=== PATIENT | male | born 1950 | race Caucasian/White ===

== ENCOUNTER 2016-06-20 06:12 | Emergency (ER) | payer OTHER ==
[~2016-06-20] VITALS: Ht 160 cm; Wt 64.0 kg
[2016-06-20 06:17] VITALS: Ht 160 cm; Wt 64.0 kg
[2016-06-20] MEDS ORDERED: KETOROLAC TROMETHAMINE 30 MG/ML VIAL IV STA (06:29)
[2016-06-20] MEDS ORDERED: MoRPHine SULFATE 10 MG/ML CARP/VIAL IV PRN (06:30)
[2016-06-20] MEDS ORDERED: ONDANSETRON INJ 2 MG/ML 2 ML VIAL IV PRN (06:30)
[2016-06-20 06:58] LABS: BASO % 0.9 %; BASO ABS # 0.07 K/uL (0-0.2); COMPLETE YES; EOS % 7.4 %; HEMATOCRIT 51.6 % (42-52); IG% 0.4 %; LYMPH % 45.5 %; LYMPH ABS # 3.65 K/uL (1.2-3.4); MEAN CELL VOLUME 90.8 fL (80-100); MEAN CORPUSCULAR HEMOGLOBIN 31.9 pg (25-34); MEAN CORPUSCULAR HGB CONC 35.1 g/dl (32-36); MEAN PLATELET VOLUME 10.6 fL (7.4-10.4); MONO % 9.2 %; NEUT % 36.6 %; PLATELET COUNT 215 K/uL (130-400); RED BLOOD COUNT 5.68 M/uL (4.7-6.1); WHITE BLOOD COUNT 8.02 K/uL (4.8-10.8)
--- NOTE | 2016-06-20 07:15 | EMERGENCY ROOM VISIT NOTE ---
History Report prepared by Mt: Daniela Hooper Under the Supervision of: Dr. Joao Zarate M.D. First contact with patient: 06:28 Chief Complaint: KIDNEY STONE Stated Complaint: KIDNEY STONE History of Present Illness The patient is a 65 year old male who presents to the Emergency Room with complaints of persistent left flank pain that began prior to arrival. He currently rates his discomfort as a 10/10 in severity. The patient notes a history of kidney stones this past summer, and states that his pain today is similar to the pain that he experienced with his previous kidney stones. He associates dysuria, urinary hesitancy, nausea, and diarrhea with his symptoms today. The patient states that he has a pacemaker and defibrillator. Source of History: patient Onset: prior to arrival Position: other (left flank) Symptom Intensity: 10/10 Timing: other (persistent) Associated Symptoms: + diarrhea, + nausea, + urinary symptoms (dysuria, urinary hesitancy) Review of Systems All systems have been listed, reviewed, and are negative other than those previously mentioned. Please see Additional Medical History Sheet. Past Medical & Surgical Medical Problems: (1) Pacemaker (2) Presence of cardiac defibrillator Family History Cancer Heart disease Hypertension Social History Smoking Status: Current Every Day Smoker Alcohol Use: occasionally Marital Status: single Occupation Status: retired Current/Historical Medications Scheduled Atorvastatin (Lipitor), 1 TAB PO DAILY Hydrocortisone (Topical) (Hydrocortisone), 1 APPLN TOP BID Metoprolol Succ (Toprol Xl) (Toprol-Xl), 25 MG PO DAILY Tamsulosin Hcl (Flomax), 0.4 MG PO DAILY Scheduled PRN Oxycodone/Acetaminophen 5MG/325MG (Percocet 5MG/325MG), 1-2 TABLETS PO Q4 PRN for Pain Miscellaneous Medications Clopidogrel Bisulfate (Clopidogrel) Lisinopril (Zestril), 10 MG PO Allergies Coded Allergies: No Known Allergies (Unverified , 06/20/16) Physical Exam Vital Signs Date Time Temp Pulse Resp B/P Pulse Ox O2 Delivery O2 Flow Rate FiO2 06/20/16 10:35 63 16 115/64 95 Room Air 06/20/16 07:42 54 18 113/72 06/20/16 06:17 52 18 129/74 97 Room Air Physical Exam GENERAL: Patient awake, alert, moderate to severe distress. SKIN: No erythema, pallor, cyanosis or rash HEENT: Normal head, pupils equal, reactive to light and accommodation. Neck: Without adenopathy, no neck vein distention. LUNGS: Clear to auscultation. No wheezes, no rales, no rhonchi. HEART: No murmurs. No gallops. No rubs ABDOMEN: No masses, no rebound, no hepatomegaly or splenomegaly. EXTREMITIES: No signs of trauma or infection. NEUROLOGIC: Cranial nerves II-XII within normal limits. No gross motor sensory function deficits. Medical Decision & Procedures ER Provider Diagnostic Interpretation: X ray results are stated below per my interpretation and the radiologist's interpretation. KUB CLINICAL HISTORY: Left flank pain. FINDINGS: An AP supine abdominal radiograph is obtained. No prior studies are available for comparison at the time of dictation. There is a nonobstructed abdominal bowel gas pattern. A 5 mm calcification is noted in the left hemipelvis. A 5 mm indeterminant calcification is also seen projecting over the left sacral ala. There is a 3 mm nonobstructing calculus projecting over the left kidney. No calcifications are seen projecting over the right kidney or along the course of the right ureter. The bony structures appear intact. IMPRESSION: 1. There are two indeterminant 5 mm calcifications projecting over the left pelvis. Although these could represent a phlebolith and bone island, an obstructing ureteral calculus is not excluded given the history of left flank pain and no prior studies for comparison. Consider correlation with renal ultrasound to assess for left-sided hydronephrosis. 2. An additional nonobstructing calculus is seen projecting over the left kidney. 3. No calcifications are seen projecting over the right kidney. Electronically signed by: Sin Antoine M.D. 06/20/2016 7:50 AM Laboratory Results 06/20/16 06:45 Red Blood Count 5.68, Mean Corpuscular Volume 90.8, Mean Corpuscular Hemoglobin 31.9, Mean Corpuscular Hemoglobin Concent 35.1, Mean Platelet Volume 10.6, Neutrophils (%) (Auto) 36.6, Lymphocytes (%) (Auto) 45.5, Monocytes (%) (Auto) 9.2, Eosinophils (%) (Auto) 7.4, Basophils (%) (Auto) 0.9, Neutrophils # (Auto) 2.94, Lymphocytes # (Auto) 3.65, Monocytes # (Auto) 0.74, Eosinophils # (Auto) 0.59, Basophils # (Auto) 0.07 06/20/16 06:45 Test 06/20/16 06:45 06/20/16 07:55 White Blood Count 8.02 K/uL (4.8-10.8) Red Blood Count 5.68 M/uL (4.7-6.1) Hemoglobin 18.1 g/dL (14.0-18.0) Hematocrit 51.6 % (42-52) Mean Corpuscular Volume 90.8 fL (80-100) Mean Corpuscular Hemoglobin 31.9 pg (25-34) Mean Corpuscular Hemoglobin Concent 35.1 g/dl (32-36) Platelet Count 215 K/uL (130-400) Mean Platelet Volume 10.6 fL (7.4-10.4) Neutrophils (%) (Auto) 36.6 % Lymphocytes (%) (Auto) 45.5 % Monocytes (%) (Auto) 9.2 % Eosinophils (%) (Auto) 7.4 % Basophils (%) (Auto) 0.9 % Neutrophils # (Auto) 2.94 K/uL (1.4-6.5) Lymphocytes # (Auto) 3.65 K/uL (1.2-3.4) Monocytes # (Auto) 0.74 K/uL (0.11-0.59) Eosinophils # (Auto) 0.59 K/uL (0-0.5) Basophils # (Auto) 0.07 K/uL (0-0.2) RDW Standard Deviation 47.6 fL (36.4-46.3) RDW Coefficient of Variation 14.2 % (11.5-14.5) Immature Granulocyte % (Auto) 0.4 % Immature Granulocyte # (Auto) 0.03 K/uL (0.00-0.02) Anion Gap 10.0 mmol/L (3-11) Est Creatinine Clear Calc Drug Dose 55.3 ml/min Estimated GFR () 82.4 Estimated GFR (Non- 71.1 BUN/Creatinine Ratio 19.4 (10-20) Calcium Level 8.7 mg/dl (8.5-10.1) Urine Color DK YELLOW Urine Appearance CLEAR (CLEAR) Urine pH 5.0 (4.5-7.5) Urine Specific [place] 1.027 (1.000-1.030) Urine Protein NEG (NEG) Urine Glucose (UA) NEG (NEG) Urine Ketones TRACE (NEG) Urine Occult Blood 3+ (NEG) Urine Nitrite NEG (NEG) Urine Bilirubin NEG (NEG) Urine Urobilinogen NEG (NEG) Urine Leukocyte Esterase NEG (NEG) Urine WBC (Auto) 1-5 /hpf (0-5) Urine RBC (Auto) >30 /hpf (0-4) Urine Hyaline Casts (Auto) 5-10 /lpf (0-5) Urine Epithelial Cells (Auto) 0-5 /lpf (0-5) Urine Bacteria (Auto) NEG (NEG) Laboratory results as stated above per my review. Medications Administered Medications (Trade) Dose Ordered Sig/[place] Route Start Time Stop Time Status Last Admin Dose Admin Ketorolac Tromethamine (Toradol Inj) 30 mg NOW STAT IV 06/20/16 06:29 06/20/16 06:33 DC 06/20/16 06:37 30 MG ED Course 0628: Past medical records reviewed. The patient was evaluated in room B10. A complete history and physical examination was performed. 0629: Toradol Inj 30 mg IV 0630: Morphine Sulfate 8 mg IV, Zofran Inj 4 mg IV 0704: I reevaluated the patient at this time and he is feeling better. 0936: I reevaluated the patient and he is feeling much better. I discussed all the exam findings with him and I discussed the treatment plan. He verbalized complete understanding and agreement. He is ready to go home. Medical Decision Nurses notes reviewed. Medical history sheet reviewed. Differential diagnosis includes but is not limited to: kidney stone, pyelonephritis, musculoskeletal pain, UTI. Multiple labs and imaging were obtained. Please see above. The patient was given IV pain medication. The patient felt significantly better. KUB did not clearly identify the stone but the patient has had multiple CTs in the past and I do not believe he requires another one at this time. The patient will continue to push fluids. He is to strain his urine. The patient was also started on Flomax. [place] Drug Monitoring Program Search Results: patient reviewed within database, no issues identified Impression Primary Impression: Renal colic on left side Scribe Attestation The scribe's documentation has been prepared under my direction and personally reviewed by me in its entirety. I confirm that the note above accurately reflects all work, treatment, procedures, and medical decision making performed by me. Departure Information Dispostion Home / Self-Care Prescriptions Oxycodone/Acetaminophen 5MG/325MG (PERCOCET 5MG/325MG) Tab 1-2 TABLETS PO Q4 Y for Pain, #20 TAB PAIN Prov: Joao Zarate M.D. 06/20/16 Tamsulosin Hcl (FLOMAX) 0.4 Mg Cap 0.4 MG PO DAILY, #10 CAP Prov: Joao Zarate M.D. 06/20/16 Referrals No Doctor, Assigned (PCP) Forms HOME CARE DOCUMENTATION FORM, IMPORTANT VISIT INFORMATION Patient Instructions ED Stone Renal W Colic, My [facility] Additional Instructions Drink extra fluids. 1 Flomax every day until stone passes. Strain your urine. 1-2 Percocet every 4 hours as needed for moderate to severe pain. Do not drive or operate machinery while taking Percocet. Return here if pain is not controlled with Percocet. Follow-up with your family physician or urologist.
[2016-06-20 07:18] LABS: BUN/CREATININE RATIO 19.4 (10-20); CALCIUM 8.7 mg/dl (8.5-10.1); CREATININE 1.1 mg/dl (0.60-1.40); POTASSIUM 3.7 mmol/L (3.5-5.1)
--- NOTE | 2016-06-20 07:51 | DIAGNOSTIC IMAGING REPORT ---
KUB CLINICAL HISTORY: Left flank pain. FINDINGS: An AP supine abdominal radiograph is obtained. No prior studies are available for comparison at the time of dictation. There is a nonobstructed abdominal bowel gas pattern. A 5 mm calcification is noted in the left hemipelvis. A 5 mm indeterminant calcification is also seen projecting over the left sacral ala. There is a 3 mm nonobstructing calculus projecting over the left kidney. No calcifications are seen projecting over the right kidney or along the course of the right ureter. The bony structures appear intact. IMPRESSION: 1. There are two indeterminant 5 mm calcifications projecting over the left pelvis. Although these could represent a phlebolith and bone island, an obstructing ureteral calculus is not excluded given the history of left flank pain and no prior studies for comparison. Consider correlation with renal ultrasound to assess for left-sided hydronephrosis. 2. An additional nonobstructing calculus is seen projecting over the left kidney. 3. No calcifications are seen projecting over the right kidney. Electronically signed by: Sin Antoine M.D. 06/20/2016 7:50 AM Dictated Date/Time: 06/20/2016 7:45 AM
[2016-06-20 08:09] LABS: URINE APPEARANCE CLEAR (CLEAR); URINE BILIRUBIN NEG (NEG); URINE COLOR DK YELLOW; URINE EPITHELIAL CELL AUTO 0-5 /lpf (0-5); URINE NITRITE NEG (NEG); URINE SPECIFIC GRAVITY 1.027 (1.000-1.030); UROBILINOGEN NEG (NEG); ZZUR CULT IF INDIC CLEAN CATCH NO
[2016-06-20 08:12] LABS: MANUAL MICROSCOPIC REQUIRED? NO; REVIEW REQ? NO
[2016-06-20] MEDS ORDERED: PLV75 (08:45)
[2016-06-20] MEDS ORDERED: ATOR10TA88 PO (08:45)
[2016-06-20] MEDS ORDERED: METO25TA3 PO (08:45)
[2016-06-20] MEDS ORDERED: LISI-461 PO (08:45)
[2016-06-20] MEDS ORDERED: HYDR2.5L TOP (08:45)
[2016-06-20] MEDS ORDERED: TAMS0.4C38 PO (10:07)
[2016-06-20] MEDS ORDERED: OXYC-57 PO (10:07)
[2016-06-20 10:35] VITALS: BP 115/64; PULSE 63; O2SAT 95
== END 2016-06-20 10:47 | disposition home or self-care (01) ==
LOC: C.EDB 06:14
DX: N20.0 Calculus of kidney (principal); F17.200 Nicotine dependence, unspecified, uncomplicated; Z79.899 Other long term (current) drug therapy; Z95.0 Presence of cardiac pacemaker; Z45.02 Encounter for adjustment and management of automatic implantable cardiac defibrillator; Z80.9 Family history of malignant neoplasm, unspecified; Z82.49 Family history of ischemic heart disease and other diseases of the circulatory system

== ENCOUNTER → 2017-05-28 | Outpatient (CLI) | payer OTHER ==
[~2017-05-28] MED LIST: ATOR10TA82 PO; HYDR2.5L TOP; LISI-461 PO; METO25TA3 PO; PLV75
--- NOTE | 2017-05-28 14:40 | DIAGNOSTIC IMAGING REPORT ---
SINUSES MIN 3 VIEWS ROUTINE CLINICAL HISTORY: J30.9 Allergic [id number] COMPARISON STUDY: None. FINDINGS: Near complete opacification of the right frontal sinus and left maxillary sinus. The remaining paranasal sinuses and mastoid air cells are clear. The nasal septum is essentially midline. IMPRESSION: Near complete opacification of the right frontal sinus and left maxillary sinus consistent with a sinusitis. Electronically signed by: Odilon Soriano M.D. 05/28/2017 2:38 PM Dictated Date/Time: 05/28/2017 2:37 PM
== END | disposition home or self-care (01) ==
LOC: C.RAD1850 14:21
PROVIDERS: ATTEND Internal Medicine Pulmonary Disease
DX: J30.9 Allergic rhinitis, unspecified (principal)

== ENCOUNTER → 2017-06-07 | Outpatient (CLI) | payer OTHER ==
[~2017-06-07] MED LIST changes: +OPTIRAY 320 IV PRN
--- NOTE | 2017-06-07 14:04 | DIAGNOSTIC IMAGING REPORT ---
CT SCAN OF THE CHEST WITH IV CONTRAST CLINICAL HISTORY: COPD exacerbation. COMPARISON STUDY: Chest radiographs dated 01/06/2017. TECHNIQUE: Following the IV administration of 85 cc of Optiray 320, CT scan of the thorax was performed from the thoracic inlet to the upper abdomen. Images are reviewed in the axial, sagittal, and coronal planes. IV contrast was administered without complication. A dose lowering technique was utilized adhering to the principles of ALARA. CT DOSE: 271.26 mGycm FINDINGS: Thyroid: Imaged portions of the thyroid gland are normal in size and attenuation. Thoracic aorta: There is mild atherosclerotic calcification of the thoracic aorta, which is normal in caliber and demonstrates standard 3-vessel arch anatomy. No dissection is seen. Pulmonary vasculature: The pulmonary trunk is normal in caliber. There are no filling defects identified in the central pulmonary vessels to indicate pulmonary embolus. Note that this examination was not protocoled for evaluation of the pulmonary arteries. Heart: A single lead cardiac AICD is present in the left chest wall. The heart is top normal in size and without pericardial effusion. A stent is suggested in the LAD. Lungs and pleural spaces: Emphysematous change is noted. The trachea and central airways are clear. Mild diffuse peribronchial thickening is identified. No lobar consolidation or pleural effusion is seen. Scarring versus linear atelectasis is seen at the left lung base. Mediastinum: There is no mediastinal lymphadenopathy. Moni: Clear. Axillae: There is no axillary lymphadenopathy. Upper abdomen: Partially visualized upper abdominal viscera is within normal limits. Skeletal structures: No lytic or blastic bony lesions are seen. IMPRESSION: 1. Emphysema. 2. There is no airspace consolidation or pleural effusion. 3. Mild diffuse peribronchial thickening suggests reactive airway disease. Clinical correlation will be required. Electronically signed by: Sin Antoine M.D. 06/07/2017 2:03 PM Dictated Date/Time: 06/07/2017 1:59 PM
== END | disposition home or self-care (01) ==
LOC: C.CTS 13:42
PROVIDERS: ATTEND Internal Medicine Pulmonary Disease
DX: J44.1 Chronic obstructive pulmonary disease with (acute) exacerbation (principal)

== ENCOUNTER → 2017-06-21 | Outpatient (CLI) | payer OTHER ==
[~2017-06-21] MED LIST changes: -OPTIRAY 320 IV PRN
--- NOTE | 2017-06-21 09:30 | DIAGNOSTIC IMAGING REPORT ---
SINUS CT CT DOSE: 602.64 mGy.cm HISTORY: ALLERGIC RHINITIS, CHRONIC SINUSITIS TECHNIQUE: Multiaxial CT images of the paranasal sinuses were performed and reformatted in the coronal plane without the use of contrast. A dose lowering technique was utilized adhering to the principles of ALARA. COMPARISON: Sinus radiograph 05/28/2017. FINDINGS: Mild mucosal thickening within the floor the left frontal sinus. The right frontal sinus is clear. There is mild mucosal thickening within the ethmoid air cells and sphenoid sinuses. Mild mucosal thickening within the floor of the right maxillary sinus. There is complete opacification the left maxillary sinus which demonstrates mild thickening and sclerosis of the surrounding bone. This suggests a chronic opacification. The lamina papyracea are intact. The right mastoid air cells are clear. A few partially opacified left inferior mastoid air cells. Tiny focal perforation of the medial left orbital floor. No soft tissue extension. Left nasal septal deviation with a left-sided nasal spur. The left middle turbinate may have been resected or is hypoplastic. The orbits and visualized brain parenchyma are unremarkable. There is a 1 cm defect within the floor of the left maxillary sinus. There is an associated periapical lucency at ADA 15. The right ostomy units is patent. The left ostiomeatal unit is expanded and opacified. There is partial erosion of the left uncinate process. Slightly hyperdense material within the opacified left maxillary sinus. This favors inspissated secretions. IMPRESSION: 1. Complete opacification of the left maxillary sinus with expansion of the left ostiomeatal unit and partial erosion of the left uncinate process. There is also increased density within the left maxillary sinus suggestive of inspissated secretions. 2. Periapical lucency surrounding ADA 15 with associated 1 cm defect at the floor of the left maxillary sinus resulting in communication of the left maxillary sinus with the periapical lucency. 3. Left nasal septal deviation. Electronically signed by: Odilon Soriano M.D. 06/21/2017 9:28 AM Dictated Date/Time: 06/21/2017 9:19 AM
== END | disposition home or self-care (01) ==
LOC: C.CTS 09:09
PROVIDERS: ATTEND Internal Medicine Pulmonary Disease
DX: J32.9 Chronic sinusitis, unspecified (principal); J30.9 Allergic rhinitis, unspecified; J34.2 Deviated nasal septum

== ENCOUNTER → 2017-07-08 | Outpatient (CLI) | payer OTHER ==
--- NOTE | 2017-07-08 07:45 | DIAGNOSTIC IMAGING REPORT ---
CT OF THE SINUSES WITHOUT CONTRAST FUSION PROTOCOL CLINICAL HISTORY: Chronic sinusitis. Near pansinusitis on previous sinus CT related to a dental abscess. COMPARISON STUDY: Sinus CT June 21, 2017. TECHNIQUE: Axial images of the sinuses were obtained without IV contrast few according to Fusion protocol. Coronal reformats were viewed. FINDINGS: Visualized portions of the intracranial contents are unremarkable this unenhanced exam. A small amount of fluid within left mastoid air cells is similar to prior exam. There is no fluid within the middle ears. Ossicles are intact. Orbits are unremarkable. Note is again made of a periapical lucency associated with the left second maxillary molar. There is a periapical lucency associated with the right third maxillary molar. Left maxillary sinus aeration has significantly improved since exam of June 21, 2017. There is mild to moderate residual mucosal thickening. The left ostiomeatal complex is now patent. There is mild mucosal thickening of the remainder of the sinuses. No air-fluid levels are present. There is no bony destruction. No mass is identified within the nasal cavity or the sinuses on this unenhanced exam. Note is made of moderate leftward deviation of the nasal septum with spur formation. IMPRESSION: 1. Significant improvement in left maxillary sinus aeration since exam of June 21, 2017. Mild to moderate residual mucosal thickening. Patent left ostiomeatal complex. 2. Otherwise, mild mucosal thickening throughout the sinuses. No air-fluid levels. 3. Moderate leftward deviation of the nasal septum. 4. Redemonstration of periapical lucencies associated with the left second maxillary molar as well as the right third maxillary molar. Electronically signed by: Ketan Mcarthur M.D. 07/08/2017 7:44 AM Dictated Date/Time: 07/08/2017 7:35 AM
== END | disposition home or self-care (01) ==
LOC: C.CTS 07:08
DX: J32.9 Chronic sinusitis, unspecified (principal); J34.2 Deviated nasal septum

== ENCOUNTER 2020-08-07 21:05 | Observation (INO) ==
--- OUTSIDE RECORDS SUMMARY | 2020-08-07 21:09 | External Medical Summary | Continuity of Care Document ---
:1950 Author Name Kenny Her, Provider Address Unavailable Unavailable , Care Team Providers Name Role Phone Ze Torres [email or web address] [place] RICARDO MORROW Unavailable Unavailable Unavailable Unavailable Unavailable Assessments Assessed Problems:Pulmonary emphysemaCOPD exacerbationChronic left maxillary sinusitisIschemic cardiomyopathyCardiac defibrillator in situ Problems Sensory hearing loss, bilateral (389.11) (H90.3) Sinusitis (473.9) (J32.9) Deviated nasal septum (470) (J34.2) Hypertrophy of both inferior nasal turbinates (478.0) (J34.3 ) Allergic rhinitis (477.9) (J30.9) Chronic sinusitis (473.9) (J32.9) COPD exacerbation (491.21) (J44.1) Cardiac defibrillator in situ (V45.02) (Z95.810) Chronic left maxillary sinusitis (473.0) (J32.0) Ischemic cardiomyopathy (414.8) (I25.5) Pulmonary emphysema (492.8) (J43.9) Allergies and Adverse Reactions No Known Drug Allergies (Allergy) Medications Proventil HFA 108 (90 Base) MCG/ACT Inha lation Aerosol Solution; INHALE 2 PUFFS Every 4 hours PRN 6.7 GM Inhaler Refills: 0 Metoprolol Succinate ER 50 MG Oral Table t Extended Release 24 Hour; TAKE 1 TABLET DAILY. 100 Tablet Bottle Refills: 0 Lisinopril 10 MG Oral Tablet; TAKE 1 TABLET DAILY. 15 Tablet Bottle Refills: 0 Clopidogrel Bisulfate 75 MG Oral Tablet; TAKE 1 TABLET DAILY . 30 Tablet Bottle Refills: 0 Nitroglycerin 0.4 MG Sublingual Tablet Sublingual Refills: 0 Doxycycline Hyclate 100 MG Oral Capsule; TAKE 1 CAPSULE TWICE DAILY - RESCUE KIT Refills: 0 Guaifenesin-Codeine 10-100 MG/5ML SYRP; TAKE 5ML EVERY 4 HOURS NEEDED FOR COUGH Refills: 0 Ipratropium-Albuterol 0.5-2.5 (3) MG/3ML Inhalation Solution; USE NEBULIZER 4 TIMES DAILY 30 x 3 ML Plas Cont Refills: 0 Gabapentin 300 MG Oral Capsule; Take 1 capsule twice daily Refills: 0 Atorvastatin Calcium 80 MG Oral Tablet; TAKE 1 TABLET DAILY. Refills: 0 Fluticasone Propionate 50 MCG/ACT Nasal Suspension; USE 2 SPRAYS INTO EACH NOSTRIL DAILY 9.9 ML Bottle Refills: 0 Aspirin 81 MG Oral Tablet Chewable; CHEW AND SWALLOW 1 TABLE T DAILY. Refills: 0 Anoro Ellipta 62.5-25 MCG/INH Inhalation Aerosol Powder Breath Activated; INHALE 1 PUFFS Daily Arden Torres Start: 15-Jun-2017 Quantity: 1 60 Inhaler Pack Refills: 5 Procedures History of cardiac catheterization with stent placement Status: Completed History of pacemaker insertion Status: C ompleted Immunizations Immunizations not documented Social History - Smoking Status Smokes tobacco daily Interventions Follow-ups/ReferralsFollow-Up Visit in 4 Months; Done: 28 Jul 2017 Discussion/SummaryContinue current maintenance inhaler return in 4 months .Urged to quit smoking entirely and to see his dentist for too long. Approximately 45 Minutes was spent with the patient. Greater than 50% of time with patient was spent on counseling and coordinating care. Plan of Treatment Planned Observations Planned Goals not documented Results No Known Results Results not documented Encounters Appointment; Ze Torres M.D. 28-Jul-2017 11:30 Encounter Diagnosis: Problem not documented
--- OUTSIDE RECORDS SUMMARY | 2020-08-07 21:09 | External Medical Summary | Continuity of Care Document ---
:1950 Author Name Kenny Her, Provider Address Unavailable Unavailable , Care Team Providers Name Role Phone Ze Torres [email or web address] [place] RICARDO MORROW Unavailable Unavailable Unavailable Unavailable Unavailable Assessments Assessed Problems:Pulmonary emphysemaCOPD exacerbationChronic left maxillary sinusitisIschemic cardiomyopathyCardiac defibrillator in situ Problems Sinusitis (473.9) (J32.9) Pulmonary emphysema (492.8) (J43.9) Ischemic cardiomyopathy (414.8) (I25.5) Chronic left maxillary sinusitis (473.0) (J32.0) Cardiac defibrillator in situ (V45.02) (Z95.810) Chronic sinusitis (473.9) (J32.9) Allergic rhinitis (477.9) (J30.9) Hypertrophy of both inferior nasal turbinates (478.0) (J34.3 ) Deviated nasal septum (470) (J34.2) Sensory hearing loss, bilateral (389.11) (H90.3) COPD exacerbation (491.21) (J44.1) Allergies and Adverse Reactions No Known Drug Allergies (Allergy) Medications Proventil HFA 108 (90 Base) MCG/ACT Inha lation Aerosol Solution; INHALE 2 PUFFS Every 4 hours PRN 6.7 GM Inhaler Refills: 0 Metoprolol Succinate ER 50 MG Oral Table t Extended Release 24 Hour; TAKE 1 TABLET DAILY. 100 Tablet Bottle Refills: 0 Doxycycline Hyclate 100 MG Oral Capsule; TAKE 1 CAPSULE TWICE DAILY - RESCUE KIT Refills: 0 Aspirin 81 MG Oral Tablet Chewable; CHEW AND SWALLOW 1 TABLE T DAILY. Refills: 0 Fluticasone Propionate 50 MCG/ACT Nasal Suspension; USE 2 SPRAYS INTO EACH NOSTRIL DAILY 9.9 ML Bottle Refills: 0 Atorvastatin Calcium 80 MG Oral Tablet; TAKE 1 TABLET DAILY. Refills: 0 Ipratropium-Albuterol 0.5-2.5 (3) MG/3ML Inhalation Solution; USE NEBULIZER 4 TIMES DAILY 30 x 3 ML Plas Cont Refills: 0 Nitroglycerin 0.4 MG Sublingual Tablet Sublingual Refills: 0 Anoro Ellipta 62.5-25 MCG/INH Inhalation Aerosol Powder Breath Activated; INHALE 1 PUFFS Daily Arden Torres Start: 15-Jun-2017 Quantity: 1 60 Inhaler Pack Refills: 5 Gabapentin 300 MG Oral Capsule; Take 1 capsule twice daily Refills: 0 Guaifenesin-Codeine 10-100 MG/5ML SYRP; TAKE 5ML EVERY 4 HOURS NEEDED FOR COUGH Refills: 0 Clopidogrel Bisulfate 75 MG Oral Tablet; TAKE 1 TABLET DAILY . 30 Tablet Bottle Refills: 0 Lisinopril 10 MG Oral Tablet; TAKE 1 TABLET DAILY. 15 Tablet Bottle Refills: 0 Procedures History of cardiac catheterization with stent [...]
[2020-08-07] MEDS ORDERED: ONDANSETRON INJ 2 MG/ML 2 ML VIAL IV STA (21:18)
[2020-08-07] MEDS ORDERED: MoRPHine SULFATE 4 MG/ML 1 ML CARP\\VIAL IV STA (21:18)
[2020-08-07] MEDS ORDERED: NITROGLYCERIN SL 0.4 MG/TAB TAB SL STA (21:18)
[2020-08-07] MEDS ORDERED: ALUMINUM/MAGNESIUM SUSP 30 ML UDC PO STA (21:18)
[2020-08-07] MEDS ORDERED: ASPIRIN CHEW 324 MG PO STA (21:18)
--- NOTE | 2020-08-07 21:24 | Emergency Department Note ---
Impression & Plan Chest pain, Abnormal EKG, Polycythemia, Tobacco use ED Provider Note NAME: MANDO BECKER AGE: 69 SEX: M : 1950 ARRIVES VIA: Walk-In INFORMANT: Patient, ED PROVIDER(S): Ze Horton DO CHIEF COMPLAINT: Epigastric pain HPI: The patient is a 69-year-old male who presented to the emergency department for an evaluation of epigastric pain. The patient states that he awoke this morning with epigastric pain. He describes it under his rib cage and under his left rib cage mostly. He describes it as a constant sensation. He describes it as "gas". He initially thought it was from heartburn. He tried [id number] medication without relief. He denies having any shortness of breath. The patient denies having any swelling in the legs or weight gain. He does have a history of coronary artery disease and has had a cardiac stent in the past. He states that his symptoms were very similar. He denies having any nausea or vomiting at this time. His pain returned this evening and did not go away and this is why he came to the emergency department. He states he tried to belch which did not relieve the pain. He states the pain is moderate at this time. He states the pain is not worsened with palpation or exertion. ROS: See above HPI for pertinent positives & negatives. A total of 10 systems reviewed and were otherwise negative. PAST MEDICAL HISTORY: See Below PAST SURGICAL HISTORY: See Below FAMILY HISTORY: See Below SOCIAL HISTORY: See Below HOME MEDICATIONS: See Below ALLERGIES: See Below VITALS: See Below PHYSICAL EXAMINATION: GENERAL: Patient is awake alert in no acute distress patient is resting comfortably and showing no signs of anxiety EYES: The conjunctivae are clear. The pupils are round and reactive. EARS, NOSE, MOUTH AND THROAT: The nose is without any evidence of any deformity. Mucous membranes are moist. Tongue is midline. NECK: The neck is nontender and supple. RESPIRATORY: Normal respiratory effort is noted there is no evidence of wheezing rhonchi or rales CARDIOVASCULAR: Regular rate and rhythm noted there no murmurs rubs or gallops normal S1 normal S2. GASTROINTESTINAL: The abdomen is mildly distended but soft. There is no tenderness guarding or rigidity appreciated. MUSCULOSKELETAL/EXTREMITIES: There is no evidence of gross deformity full range of motion is noted in the hips and shoulders. SKIN: There is no obvious evidence of any rash. There are no petechiae, pallor or cyanosis noted. NEUROLOGIC: Patient is awake alert and oriented x3. MEDICAL DECISION MAKING: The patient is a 69-year-old male who presented to the emergency department for an evaluation of epigastric pain. The patient describes the epigastric pain as a gassy pain. He did not have reproducible pain on physical exam. The patient had similar episode when he had coronary artery disease and received a stent. The patient was treated with aspirin Maalox nitroglycerin and morphine in the emergency department. He was reevaluated multiple times. On subsequent reevaluation the patient's pain was improved. I discussed the patient's laboratory and radiographic studies with him. I also discussed the limitations of the emergency department work-up for chest pain with him. He continues to use tobacco products. The patient is very high risk for another episode of acute coronary syndrome. For this reason I discussed his case with the on-call [facility]ist. They have agreed to evaluate the patient in the emergency department for further management and disposition Triage Nursing notes reviewed. Prior medical records reviewed Vital Signs: reviewed and remarkable for no significant abnormalities Differential diagnosis: Cardiac ischemia, aortic dissection, pulmonary embolism, pneumothorax, pneumonia, pericarditis, myocarditis, esophageal rupture, GERD, cholecystitis, pancreatitis, musculoskeletal, as well as other pathologies. ER treatment provided: See below Diagnostics interpreted by me: ECG: EKG was obtained in the emergency department. My interpretation is normal sinus rhythm at 69 bpm. Poor R wave progression was noted. Anterior Q waves were noted. High lateral T wave versions were also noted. No previous tracing was available for comparison. Cardiac Monitoring: An order was placed for continuous cardiac monitoring. The monitor shows a rate of 65 beats per minute with sinus rhythm. Laboratory studies: As stated above and show below. Imaging studies: See below Consultation(s): [id number]: I discussed this case with Dr. Silverio who is on-call for the [facility] group. 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 Beliefs That Will Affect Care: None Current Living Situation: Spouse Feels Safe at Home: Yes Assistive Devices: None Allergies Allergies Allergy/AdvReac Type Severity Reaction Status Date / Time No Known Allergies Allergy Unverified 08/07/20 22:29 Home Meds Home Medications Medication Instructions Recorded Confirmed albuterol sulfate 2 inh INHALATION QID PRN 08/07/20 08/07/20 atorvastatin 80 mg PO DAILY 08/07/20 08/07/20 clopidogrel 75 mg PO DAILY 08/07/20 08/07/20 ezetimibe 10 mg PO DAILY 08/07/20 08/07/20 fluticasone propionate [Flonase 2 spray INTRANASAL DAILY 08/07/20 08/07/20 Allergy Relief] lisinopril 10 mg PO DAILY 08/07/20 08/07/20 metoprolol succinate 75 mg PO DAILY 08/07/20 08/07/20 nitroglycerin [Nitrostat] 0.4 mg SUBLINGUAL UD PRN 08/07/20 08/07/20 Results & Data (ED) Vital Signs Vital Signs - 24 hr 08/07/20 21:08 08/07/20 21:35 08/07/20 21:40 Temperature 36.9 C Temperature Source Temporal Artery Scan Pulse Rate 84 62 64 Pulse Rate [Right Finger] Pulse Rate from SpO2 Sensor 62 Respiratory Rate 18 18 19 Respiratory Effort / Characteristics Non-Labored Respiratory Depth Normal Blood Pressure 162/92 H 144/80 H Blood Pressure [Right Arm] Blood Pressure Mean 115 101 Blood Pressure Mean [Right Arm] Pulse Oximetry 94 93 Oxygen Delivery Method Room Air Room Air Room Air Sepsis Recent Fever Within 48 Hours No Sepsis New/Unexplained Change in Mental Status No Sepsis Action Taken by Nursing No Action Required 08/07/20 21:50 08/07/20 22:00 08/07/20 23:06 Temperature Temperature Source Pulse Rate 54 L 54 L Pulse Rate [Right Finger] 60 Pulse Rate from SpO2 Sensor Respiratory Rate 21 27 H 16 Respiratory Effort / Characteristics Respiratory Depth Blood Pressure Blood Pressure [Right Arm] 111/63 Blood Pressure Mean Blood Pressure Mean [Right Arm] 79 Pulse Oximetry 97 Oxygen Delivery Method Room Air Room Air Room Air Sepsis Recent Fever Within 48 Hours Sepsis New/Unexplained Change in Mental Status Sepsis Action Taken by Retirement Medications Current Medication List: was personally reviewed by me Laboratory Data Attestation: I reviewed the patient's lab results. Result diagrams: 08/07/20 21:32 08/07/20 22:30 Lab Results 08/07/20 08/07/20 08/07/20 Range/Units 21:32 21:32 21:32 WBC 9.86 (4.8-10.8) K/uL RBC 6.18 H (4.7-6.1) M/uL Hgb 20.0 H (14.0-18.0) g/dL Hct 54.0 H (42-52) % MCV 87.4 (80-100) fL MCH 32.4 (25-34) pg MCHC 37.0 H (32-36) g/dL RDW Std Deviation 48.4 H (36.4-46.3) fL RDW Coeff of Areli 15.2 H (11.5-14.5) % Plt Count 206 (130-400) K/uL MPV 10.4 (7.4-10.4) fL Immature Gran % (Auto) 0.2 % Neut % (Auto) 48.7 % Lymph % (Auto) 36.7 % Canyon % (Auto) 10.5 % Eos % (Auto) 3.1 % Baso % (Auto) 0.8 % Neut # (Auto) 4.79 (1.4-6.5) K/uL Lymph # (Auto) 3.62 H (1.2-3.4) K/uL Canyon # (Auto) 1.04 H (0.11-0.59) K/uL Eos # (Auto) 0.31 (0-0.5) K/uL Baso # (Auto) 0.08 (0-0.2) K/uL Immature Gran # (Auto) 0.02 (0.00-0.02) K/uL PT Cancelled INR Cancelled APTT Cancelled PTT Ratio Cancelled Sodium 138 (136-145) mmol/L Potassium (3.5-5.1) mmol/L Chloride 107 (98-107) mmol/L Carbon Dioxide 27 (21-32) mmol/L Anion Gap 4.0 (3-11) BUN 12 (7-18) mg/dl Creatinine 0.98 (0.6-1.4) mg/dl Est Cr Clr Drug Dosing 61.2 ml/min Est GFR ( Amer) 92.1 Est GFR (Non-Af Amer) 79.5 BUN/Creatinine Ratio 12.6 (10-20) Glucose 105 H (70-99) mg/dl Calcium 9.2 (8.5-10.1) mg/dl Total Bilirubin 0.8 (0.2-1) mg/dl AST (15-37) U/L ALT 40 (12-78) U/L Alkaline Phosphatase 78 (45-117) U/L Troponin I < 0.015 (0-0.045) ng/ml Total Protein 7.9 (6.4-8.2) gm/dl Albumin 3.9 (3.4-5.0) gm/dl Globulin 4.0 (2.5-4.0) gm/dl Albumin/Globulin Ratio 1.0 (0.9-2) Lipase 365 (73-393) U/L COVID-19 Eval Order 08/07/20 08/07/20 08/07/20 Range/Units 21:32 22:27 22:30 WBC (4.8-10.8) K/uL RBC (4.7-6.1) M/uL Hgb (14.0-18.0) g/dL Hct (42-52) % MCV (80-100) fL MCH (25-34) pg MCHC (32-36) g/dL RDW Std Deviation (36.4-46.3) fL RDW Coeff of Areli (11.5-14.5) % Plt Count (130-400) K/uL MPV (7.4-10.4) fL Immature Gran % (Auto) % Neut % (Auto) % Lymph % (Auto) % Canyon % (Auto) % Eos % (Auto) % Baso % (Auto) % Neut # (Auto) (1.4-6.5) K/uL Lymph # (Auto) (1.2-3.4) K/uL Canyon # (Auto) (0.11-0.59) K/uL Eos # (Auto) (0-0.5) K/uL Baso # (Auto) (0-0.2) K/uL Immature Gran # (Auto) (0.00-0.02) K/uL PT 12.1 H INR 1.2 H APTT 25.6 PTT Ratio 1.0 Sodium (136-145) mmol/L Potassium 3.9 (3.5-5.1) mmol/L Chloride (98-107) mmol/L Carbon Dioxide (21-32) mmol/L Anion Gap (3-11) BUN (7-18) mg/dl Creatinine (0.6-1.4) mg/dl Est Cr Clr Drug Dosing ml/min Est GFR ( Amer) Est GFR (Non-Af Amer) BUN/Creatinine Ratio (10-20) Glucose (70-99) mg/dl Calcium (8.5-10.1) mg/dl Total Bilirubin (0.2-1) mg/dl AST 25 (15-37) U/L ALT (12-78) U/L Alkaline Phosphatase (45-117) U/L Troponin I (0-0.045) ng/ml Total Protein (6.4-8.2) gm/dl Albumin (3.4-5.0) gm/dl Globulin (2.5-4.0) gm/dl Albumin/Globulin Ratio (0.9-2) Lipase (73-393) U/L COVID-19 Eval Order CovFluRsv at [facility] Administered Medications Discontinued Medications Al Hydrox/Mg Hydrox/Simethicone (Aluminum/Magnesium Susp 30 Ml Udc) 30 ml PO NOW STA Stop: 08/07/20 21:19 Last Admin: 08/07/20 21:30 Dose: 30 ml Documented by: [id number] Aspirin (Aspirin Chew 324 Mg) 324 mg PO NOW STA Stop: 08/07/20 21:19 Last Admin: 08/07/20 21:29 Dose: 324 mg Documented by: [id number] Morphine Sulfate (Morphine Sulfate 4 Mg/Ml 1 Ml Carp\\Vial) 4 mg IV NOW STA Stop: 08/07/20 21:19 Last Admin: 08/07/20 21:31 Dose: 4 mg Documented by: [id number] Nitroglycerin (Nitroglycerin Sl 0.4 Mg/Tab Tab) 0.4 mg SL NOW STA Stop: 08/07/20 21:19 Last Admin: 08/07/20 21:29 Dose: 0.4 mg Documented by: [id number] Ondansetron HCl (Ondansetron Inj 2 Mg/Ml 2 Ml Vial) 4 mg IV NOW STA Stop: 08/07/20 21:19 Last Admin: 08/07/20 21:31 Dose: 4 mg Documented by: [id number] Imaging Data Attestation: I personally reviewed and interpreted this imaging study as follows: My Impression: 1 view chest x-ray was obtained in the emergency department. My interpretation is heart size is normal. There is no definite filtrate. No pneumothorax was noted. Pacemaker was noted. This was compared to a chest x- ray from January 062016. No significant changes were noted. Discharge Plan Visit Data Chief Complaint: GI Assessment Stated Complaint: NAUSEA, GASSY FEEELING IN UPPER ABDOMEN ED Provider: Ze Horton Discharge Problem: Chest pain, Abnormal EKG, Polycythemia, Tobacco use Patient Disposition: Being Evaluated by Hospitalist Condition: Good Forms Stand Alone Forms: My [facility] Prescriptions Prescriptions: No Action atorvastatin 80 mg tablet 80 mg PO DAILY RF: 0 metoprolol succinate 50 mg tablet extended release 24 hr 75 mg PO DAILY RF: 0 clopidogrel 75 mg tablet 75 mg PO DAILY RF: 0 lisinopril 10 mg tablet 10 mg PO DAILY RF: 0 nitroglycerin [Nitrostat] 0.4 mg Tablet, Sublingual 0.4 mg sublingual UD PRN (Reason: Chest Pain) RF: 0 albuterol sulfate 90 mcg/actuation Hfa Aerosol Inhaler 2 inh INHALATION QID PRN (Reason: Shortness Of Breath Or Wheezing) RF: 0 fluticasone propionate [Flonase Allergy Relief] 50 mcg/actuation [place],Suspension 2 spray INTRANASAL DAILY RF: 0 ezetimibe 10 mg tablet 10 mg PO DAILY RF: 0 Referrals Referrals: Roberta Watson DO [Primary Care Provider] -
[2020-08-07 21:46] LABS: Basophils # (auto) 0.08 K/uL (0-0.2); Basophils % (auto) 0.8 %; Eosinophils # (auto) 0.31 K/uL (0-0.5); Eosinophils % (auto) 3.1 %; Immature Granulocytes # (auto) 0.02 K/uL (0.00-0.02); Immature Granulocytes % (auto) 0.2 %; Lymphocytes # (auto) 3.62 K/uL (1.2-3.4); Lymphocytes % (auto) 36.7 %; Mean Corpuscular Hemoglobin 32.4 pg (25-34); Mean Corpuscular Volume 87.4 fL (80-100); Mean Platelet Volume 10.4 fL (7.4-10.4); Monocytes # (auto) 1.04 K/uL (0.11-0.59); Monocytes % (auto) 10.5 %; Neutrophils # (auto) 4.79 K/uL (1.4-6.5); Neutrophils % (auto) 48.7 %; Platelet Count 206 K/uL (130-400); RDW Coefficient of Variation 15.2 % (11.5-14.5); RDW Standard Deviation 48.4 fL (36.4-46.3); Red Blood Count 6.18 M/uL (4.7-6.1); White Blood Count 9.86 K/uL (4.8-10.8)
[2020-08-07 22:18] LABS: Alanine Aminotransferase 40 U/L (12-78); Albumin Level 3.9 gm/dl (3.4-5.0); BUN Creatinine Ratio 12.6 (10-20); Blood Urea Nitrogen 12 mg/dl (7-18); Calcium 9.2 mg/dl (8.5-10.1); Carbon Dioxide 27 mmol/L (21-32); Chloride 107 mmol/L (98-107); Creatinine Clr Calc Pharmacy 61.2 ml/min; Est GFR (African American) 92.1; Est GFR (Non-African American) 79.5; Glucose 105 mg/dl (70-99); Lipase 365 U/L (73-393); Sodium 138 mmol/L (136-145)
[2020-08-07 22:45] LABS: Alkaline Phosphatase 78 U/L (45-117); Bilirubin,Total 0.8 mg/dl (0.2-1); Total Protein 7.9 gm/dl (6.4-8.2); Troponin I < 0.015 ng/ml (0-0.045)
[2020-08-07 22:50] LABS: Potassium 3.9 mmol/L (3.5-5.1)
[2020-08-07 22:51] LABS: INR 1.2 (0.9-1.1); Partial Thromboplastin Time 25.6 Seconds (21.0-31.0); Prothrombin Time 12.1 Seconds (9.0-12.0)
[2020-08-08 00:49] LABS: Influenza A virus by PCR Negative (Neg); Influenza B virus by PCR Negative (Neg); RSV by PCR Negative (Neg); SARS CoV2 RNA(COVID-19) InHosp NEGATIVE (Negative)
[2020-08-08] MEDS ORDERED: ONDANSETRON INJ 2 MG/ML 2 ML VIAL IV PRN (02:32)
[2020-08-08] MEDS ORDERED: ALBUT/IPRATROP 3MG/0.5MG NEB 3 ML VIAL NEB PRN (02:32)
[2020-08-08] MEDS ORDERED: ALBUTEROL HFA 8 GM INHALER INH PRN (02:32)
[2020-08-08] MEDS ORDERED: ACETAMINOPHEN 325 MG TAB PO PRN (02:32)
[2020-08-08] MEDS ORDERED: NITROGLYCERIN SL 0.4 MG/TAB TAB SL PRN ×2 (02:32)
--- NOTE | 2020-08-08 03:41 | History and Physical Report ---
DATE OF ADMISSION: 08/08/2020 CHIEF COMPLAINT: Epigastric pain and chest pain. HISTORY OF PRESENT ILLNESS: This is a 69-year-old male with past medical history significant for CAD status post stent, history of SVT, VT status post ICD, ischemic cardiomyopathy, chronic systolic congestive heart failure, hypertension, COPD, hyperlipidemia, sensorineural hearing loss of both ears, who presents with epigastric pain. The patient woke up in the morning with epigastric discomfort, 7/10 to 8/10 in severity, gas-like feeling, feeling uncomfortable, nausea. He had similar kind of symptoms when he had a heart attack. Seemed to be improved and he went to sleep and when he woke up it came back in the evening, so he came back to the hospital. Initial workup was unremarkable. After nitro, aspirin, morphine, and Maalox, pain resolved. Currently resting comfortably and hemodynamically stable. Currently, no pain, no shortness of breath, no headache, no blurred visions, no earache, no runny nose, no sore throat. Has chronic cough from his sinuses. No abdominal pain currently. No diarrhea, no constipation, no blood in the stools or black stools. Normal bladder movements. No swelling in the legs. Otherwise, ambulates okay at home. ALLERGIES: No known drug allergies. PAST MEDICAL HISTORY: As mentioned above. PAST SURGICAL HISTORY: Status post ICD, status post cardiac stent. MEDICATIONS: The patient is on albuterol 2 puffs inhalation q.i.d. p.r.n., aspirin 81 mg p.o. daily, atorvastatin 80 mg p.o. daily, Plavix 75 mg p.o. daily, ezetimibe 10 mg p.o. daily, Flonase 2 sprays intranasal daily, lisinopril 10 mg p.o. daily, metoprolol succinate 75 mg p.o. daily, nitroglycerin 0.4 mg sublingual p.r.n. FAMILY HISTORY: Significant for mother has hypertension, sister has hypertension, father has AK, prostate cancer, stomach cancer. SOCIAL HISTORY: Lives with his girlfriend. Smokes one cigarette a day. Drinks beer now and then. No drug use. REVIEW OF SYSTEMS: As per HPI. Rest of review of systems negative. PHYSICAL EXAMINATION: GENERAL: The patient is of moderate build, not in acute distress. VITAL SIGNS: Temperature 36.9, pulse 60, respiratory rate 16, blood pressure 111/63, oxygen 97% on room air. HEENT: No pallor, no icterus. Atraumatic. NECK: No JVD, no neck masses. CARDIOVASCULAR: S1, S2 heard, regular rate and rhythm, no murmur, no gallop. RESPIRATORY SYSTEM: Normal AP diameter. No accessory muscle use. No wheezing, no crackles. ABDOMEN: Soft, bowel sounds present, nontender. No distention. CENTRAL NERVOUS SYSTEM: Cranial nerves II-XII grossly intact, nonfocal. EXTREMITIES: No edema, no erythema. LABORATORY DATA: WBC 9.8, hemoglobin 20, hematocrit 54, platelets 206. PT 11.2, INR 1.1, APTT 25.6. Sodium 138, potassium 3.9, chloride 107, bicarbonate 27, BUN 12, creatinine 0.9, serum glucose 105, calcium 9.2, total bilirubin 0.8, AST 25, ALT 40, alkaline phosphatase 78. Troponin I less than 0.015. Lipase 365. SARS-CoV-2 pending. IMAGING DATA: Chest x-ray, no acute findings seen. EKG: Normal sinus rhythm at a rate of 69, poor R-wave progression. ASSESSMENT AND PLAN: This is a 69-year-old male who presents with epigastric pain. 1. Epigastric pain and chest pain: Resolved with nitro, aspirin, morphine, Maalox. He had a similar kind of pain when he had AK in the past. We will follow the serial enzymes, echo. We will keep him n.p.o. until seen by cardiology in the a.m. 2. History of coronary artery disease status post stent: Continue his aspirin, Plavix, statin, Zetia, and beta rolando. Follow the echocardiogram. 3. Chronic systolic congestive heart failure: Ejection fraction of 37% on echo in September 2019. On Toprol-XL, lisinopril. Not on any diuretics. We will follow the echocardiogram. 4. History of hyperlipidemia: Continue statin and Zetia. 5. Hypertension: Continue Toprol-XL, lisinopril. Monitor the blood pressure. 6. History of supraventricular tachycardia: Recently On ICD interrogation, he was found to have SVT, so Toprol-XL was increased to 75 mg daily. We will monitor in the tele. 7. History of chronic obstructive pulmonary disease: Continue home inhalers, currently stable. 8. Deep venous thrombosis prophylaxis: Sequential compression devices. 9. Elevated white count: Could be from the smoking. We will follow the repeat labs. DISPOSITION: [facility] Level 1 full code. Expect to discharge home and follow with family doctor. CHERYL
[2020-08-08 06:03] LABS: Basophils # (auto) 0.03 K/uL (0-0.2); Basophils % (auto) 0.3 %; Eosinophils % (auto) 2.1 %; Hematocrit (blood only) 50.9 % (42-52); Hemoglobin 18.1 g/dL (14.0-18.0); Immature Granulocytes # (auto) 0.02 K/uL (0.00-0.02); Immature Granulocytes % (auto) 0.2 %; Lymphocytes # (auto) 2.73 K/uL (1.2-3.4); Lymphocytes % (auto) 29.3 %; Mean Corpuscular Hemoglobin 31.9 pg (25-34); Mean Corpuscular Hgb Conc 35.6 g/dL (32-36); Mean Corpuscular Volume 89.8 fL (80-100); Mean Platelet Volume 10.5 fL (7.4-10.4); Monocytes % (auto) 12.9 %; Neutrophils # (auto) 5.15 K/uL (1.4-6.5); Neutrophils % (auto) 55.2 %; Platelet Count 182 K/uL (130-400); RDW Coefficient of Variation 15.4 % (11.5-14.5); Red Blood Count 5.67 M/uL (4.7-6.1); White Blood Count 9.33 K/uL (4.8-10.8)
[2020-08-08 06:30] LABS: BUN Creatinine Ratio 17.6 (10-20); Blood Urea Nitrogen 16 mg/dl (7-18); Calcium 8.4 mg/dl (8.5-10.1); Carbon Dioxide 29 mmol/L (21-32); Chloride 111 mmol/L (98-107); Creatinine Clr Calc Pharmacy 65.2 ml/min; Est GFR (African American) 99.4; Est GFR (Non-African American) 85.8; Glucose 111 mg/dl (70-99); Magnesium 2.5 mg/dl (1.8-2.4); Potassium 4.1 mmol/L (3.5-5.1); Sodium 141 mmol/L (136-145)
[2020-08-08 06:35] LABS: Troponin I < 0.015 ng/ml (0-0.045)
--- NOTE | 2020-08-08 06:51 | Hospitalist Progress Note ---
Date of Service August 08, 2020 Assessment & Plan (1) Chest pain: (2) Epigastric abdominal pain: (3) Abnormal EKG: (4) Polycythemia: (5) Tobacco use: (6) Presence of cardiac defibrillator: (7) Pacemaker: Cardiac eval today, PT seen, still c epigastric pain. Labs checked. Seen by my partner at 330 am today ROS-No Headache, No Visual Changes, No Nausea, No Vomiting, No Fever, No Chills, No Neck Pain or Stiffness, + Chest Pain, No Palpitations, No SOB, No FORRESTER, No Cough, No Sputum, No Wheezing, +Epigastric Abdominal Pain, No Diarrhea, No Hematemesis, No Hemoptysis, No Unexpected Weight Loss, No Flank pain, No Melena, No Hematochezia, No Frequency, No Urgency, No Burning, No Hematuria, No Rashes, No Diaphoresis. Appetite is Normal Physical Exam Gen-AAO x 3, NAD, Afebrile Head-NCAT, EOMI, PERRLA, Anicteric Sclera, No Posterior Pharyngeal Erythema Neck-Supple, No JVD, No Thyromegaly, No Masses, No LAD, No Bruits Lungs-Clear to Auscultation Bilaterally, No Rales, No Rhonchi, No Wheezing, No Crepitus Chest-No S4, +S1, +S2, No S3, No Murmurs, No Rubs, No Gallops, No Ectopy Abdomen-Soft, Bowel Sounds Present, Non Tender, Non Distended, No Hepatomegaly, No Splenomegaly, No Palpable Masses, No Rebound, No Rigidity, No Guarding Musculoskeletal-Full Range of Motion Bilaterally, No CVAT Extremities-No Cyanosis, No Clubbing, No Edema Nuero-Cranial Nerves II-XII grossly intact, Motor WNL, DTRs WNL, Strength WNL, Non Focal Psych-Normal Mood Admission and Anticipated Discharge Date Admission Date: August 08, 2020 Results & Data Results & Data ([facility]) Vital Signs (Past 12 Hours) Vital Signs Temp Pulse Pulse Resp BP BP Pulse Ox 08/08/20 04:29 36.6 C 58 L 16 113/68 93 08/08/20 03:57 36.3 C L 67 16 123/70 93 08/08/20 02:21 70 16 102/65 97 08/08/20 01:44 62 16 110/70 97 08/08/20 01:14 63 16 117/73 97 08/07/20 23:06 60 16 111/63 97 08/07/20 22:00 54 L 27 H 08/07/20 21:50 54 L 21 08/07/20 21:40 64 19 08/07/20 21:35 62 18 144/80 H 93 08/07/20 21:08 36.9 C 84 18 162/92 H 94 (1) Chest pain Chest pain type: unspecified Qualified Code(s): R07.9 - Chest pain, unspecified
[2020-08-08] MEDS ORDERED: PERFLUTREN LIPID MICROSPHERE (DEFINITY) IV ONE (07:15)
--- NOTE | 2020-08-08 08:20 | XRay Report ---
XR chest 1V portable HISTORY: Atypical chest pain. COMPARISON: Chest 01/06/2017. FINDINGS: Left-sided pacemaker/defibrillator. The heart is top normal in size. No focal lung consolid ations to suggest pneumonia. No evidence for pulmonary edema. No pleural effusions. No pneumothorax. Questionable small nodular densities within the left upper lobe. This favors the normal pulmonary ves sels. However, follow-up chest CT is recommended for further evaluation. IMPRESSION: Questionable small nodular densities within the left upper lobe. This favors the normal pulmonary ve ssels. However, follow-up chest CT is recommended for further evaluation. ACT 112: Negative or not required by law. Electronically signed by: Odilon Soriano M.D. 08/08/2020 8:19 AM
[2020-08-08] MEDS ORDERED: Nursing to Pharmacy Communication SCH (08:30)
[2020-08-08] MEDS ORDERED: EZETIMIBE 10 MG TABLET PO SCH ×2 (09:00→21:00)
[2020-08-08] MEDS ORDERED: ATORVASTATIN 40 MG TAB PO SCH ×2 (09:00→21:00)
[2020-08-08] MEDS ORDERED: ASPIRIN 81 MG ECTAB PO SCH ×2 (09:00→21:00)
[2020-08-08] MEDS ORDERED: CLOPIDOGREL BISULFATE 75 MG TAB PO SCH ×2 (09:00→21:00)
[2020-08-08] MEDS ORDERED: FLUTICASONE PROPIONATE NA SPR 16 GM BTL SCH (09:00)
[2020-08-08] MEDS ORDERED: lisinopril 10 MG TAB PO SCH ×2 (09:00→21:00)
[2020-08-08] MEDS ORDERED: METOPROLOL SUCC 25MG EXT REL TAB PO SCH ×2 (09:00→21:00)
--- NOTE | 2020-08-08 09:05 | Cardiology Consultation ---
Date of Consultation August 08, 2020 Assessment & Plan (1) Epigastric abdominal pain: I think this was noncardiac epigastric discomfort. Patient has had negative enzymes and no significant EKG changes. I believe the patient can be discharged home with outpatient follow-up. 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 He does have sublingual nitroglycerin at home but he believes it it is . I would recommend giving him a prescription for sublingual nitroglycerin for a fresh bottle. I encouraged him to use it if necessary. (2) Tobacco use: The patient continues to smoke 1 to 2 cigarettes a day. I encouraged him to stop. (3) Presence of cardiac defibrillator: According to our last clinic notes his defibrillator has been functioning appropriately. (4) CAD (coronary artery disease): Patient has a history of a previous anterior wall myocardial infarction with an ischemic cardiomyopathy and previous stent to the LAD. History of Present Illness Attending Physician: Franklyn Graf DO History of Present Illness This is a 69-year-old male patient with the past medical history as listed below. He has been stable for several years. Starting Wednesday evening he just did not feel well. He had some indigestion. He went to sleep and woke up and all day yesterday again he just did not feel well with bloating and epigastric discomfort. He was not sure that this was not related to his heart so he decided to come to the emergency department. After admission his EKGs showed no acute changes. His cardiac markers have been negative. He currently is pain- free and has no cardiac complaints. He is anxious to return home. Past medical history: 1. Ischemic cardiomyopathy with infarct of the LAD distribution and chronic systolic heart failure 2. Single-chamber Med[employer] ICD implanted 2017 3. Coronary artery disease with prior stenting of the left anterior descending artery 4. Dyslipidemia 5. Hypertension 6. Active smoker Allergies Allergy/AdvReac Type Severity Reaction Status Date / Time No Known Allergies Allergy Unverified 08/07/20 22:29 Home Medications Medication Instructions Recorded Confirmed Type albuterol sulfate 2 inh INHALATION QID PRN 08/07/20 08/07/20 History atorvastatin 80 mg PO DAILY 08/07/20 08/07/20 History clopidogrel 75 mg PO DAILY 08/07/20 08/07/20 History ezetimibe 10 mg PO DAILY 08/07/20 08/07/20 History fluticasone propionate [Flonase 2 spray INTRANASAL DAILY 08/07/20 08/07/20 H istory Allergy Relief] lisinopril 10 mg PO DAILY 08/07/20 08/07/20 History metoprolol succinate 75 mg PO DAILY 08/07/20 08/07/20 History nitroglycerin [Nitrostat] 0.4 mg SUBLINGUAL UD PRN 08/07/20 08/07/20 History aspirin [Aspir-81] 81 mg PO DAILY 08/08/20 08/08/20 History Patient History Medical History Coronary artery disease Pacemaker Presence of cardiac defibrillator Surgical History History of heart artery stent Social History Smoking Status: Current every day smoker Cigarettes Per Day: 1; Hx Alcohol Use: No Hx Substance Use: No Preferred Language: [place] Communication Ability: Effective Property Management Specialist Required: Yes Beliefs That Will Affect Care: None Current Living Situation: Spouse Other Information That Helps Us Care for You: No Feels Safe at Home: Yes Safety Concerns: Feels Safe At This Time Assistive Devices: None Review of Systems Review of Systems: All systems reviewed & are unremarkable except as noted in HPI & below Nothing additional to add. Physical Exam Physical Exam: General: no acute distress and stated age Head: normocephalic, no masses, lesions, tenderness or abnormalities Eyes: conjunctiva are pink and non-injected, sclera clear Neck: supple, no adenopathy, no bruits, normal jugular venous pulse, no hepatojugular reflux Chest: normal shape and normal respiratory effort Lungs: clear to auscultation and percussion Cardiac Exam: - regular rate & rhythm, no murmurs gallops or rubs - normal S1, normal S2 Pulses: 2(+) throughout Abdomen: abdomen soft, non-tender, no abnormal masses and no hepatosplenomegaly Musculoskeletal: no gait disturbance, no joint inflammation, no deforming arthritis Extremities: no edema and no cyanosis Neuro: grossly normal exam Results & Data ([facility]) Vital Signs (Past 12 Hours) Vital Signs Temp Pulse Pulse Resp BP BP Pulse Ox 08/08/20 07:47 36.6 C 62 18 134/81 91 08/08/20 04:29 36.6 C 58 L 16 113/68 93 08/08/20 03:57 36.3 C L 67 16 123/70 93 08/08/20 02:21 70 16 102/65 97 08/08/20 01:44 62 16 110/70 97 08/08/20 01:14 63 16 117/73 97 08/07/20 23:06 60 16 111/63 97 08/07/20 22:00 54 L 27 H 08/07/20 21:50 54 L 21 08/07/20 21:40 64 19 08/07/20 21:35 62 18 144/80 H 93 08/07/20 21:08 36.9 C 84 18 162/92 H 94 Laboratory Results Laboratory Results - last 24 hr 08/07/20 08/07/20 08/07/20 21:32 21:32 21:32 WBC 9.86 RBC 6.18 H Hgb 20.0 H Hct 54.0 H MCV 87.4 MCH 32.4 MCHC 37.0 H RDW Std Deviation 48.4 H RDW Coeff of Areli 15.2 H Plt Count 206 MPV 10.4 Immature Gran % (Auto) 0.2 Neut % (Auto) 48.7 Lymph % (Auto) 36.7 [place] % (Auto) 10.5 Eos % (Auto) 3.1 Baso % (Auto) 0.8 Neut # (Auto) 4.79 Lymph # (Auto) 3.62 H [place] # (Auto) 1.04 H Eos # (Auto) 0.31 Baso # (Auto) 0.08 Immature Gran # (Auto) 0.02 PT Cancelled INR Cancelled APTT Cancelled PTT Ratio Cancelled Sodium 138 Potassium Chloride 107 Carbon Dioxide 27 Anion Gap 4.0 BUN 12 Creatinine 0.98 Est Cr Clr Drug Dosing 61.2 Est GFR ( Amer) 92.1 Est GFR (Non-Af Amer) 79.5 BUN/Creatinine Ratio 12.6 Glucose 105 H Calcium 9.2 Magnesium Total Bilirubin 0.8 AST ALT 40 Alkaline Phosphatase 78 Troponin I < 0.015 Total Protein 7.9 Total Protein (PEP) Albumin 3.9 Albumin (PEP) Globulin 4.0 Albumin/Globulin Ratio 1.0 Khiry-2-Baueygkfp Sapaf-1-Ambojwqnb Onjs-0-Wunqehkc Lquw-8-Rsztotbn Gamma Globulins Monoclonal Peak 3 Ser Monoclonl Protein Ser Monoclonal Prot 2 PEP Interpretation Lipase 365 COVID-19 Eval Order SARS-CoV-2 (PCR) Influenza Type A (PCR) Influenza Type B (PCR) RSV (RT-PCR) 08/07/20 08/07/20 08/07/20 21:32 21:32 22:27 WBC RBC Hgb Hct MCV MCH MCHC RDW Std Deviation RDW Coeff of Areli Plt Count MPV Immature Gran % (Auto) Neut % (Auto) Lymph % (Auto) [place] % (Auto) Eos % (Auto) Baso % (Auto) Neut # (Auto) Lymph # (Auto) [place] # (Auto) Eos # (Auto) Baso # (Auto) Immature Gran # (Auto) PT 12.1 H INR 1.2 H APTT 25.6 PTT Ratio 1.0 Sodium Potassium Chloride Carbon Dioxide Anion Gap BUN Creatinine Est Cr Clr Drug Dosing Est GFR ( Amer) Est GFR (Non-Af Amer) BUN/Creatinine Ratio Glucose Calcium Magnesium Total Bilirubin AST ALT Alkaline Phosphatase Troponin I Total Protein Total Protein (PEP) Albumin Albumin (PEP) Globulin Albumin/Globulin Ratio Wheus-7-Ybfmokebl Ktpoc-1-Puswdjqop Hcce-3-Tmtdnpmf Huvd-8-Ykzptocy Gamma Globulins Monoclonal Peak 3 Ser Monoclonl Protein Ser Monoclonal Prot 2 PEP Interpretation Lipase COVID-19 Eval Order CovFluRsv at [facility] SARS-CoV-2 (PCR) NEGATIVE Influenza Type A (PCR) Negative Influenza Type B (PCR) Negative RSV (RT-PCR) Negative 08/07/20 08/08/20 08/08/20 22:30 05:34 05:34 WBC 9.33 RBC 5.67 Hgb 18.1 H Hct 50.9 MCV 89.8 MCH 31.9 MCHC 35.6 RDW Std Deviation 51.0 H RDW Coeff of Areli 15.4 H Plt Count 182 MPV 10.5 H Immature Gran % (Auto) 0.2 Neut % (Auto) 55.2 Lymph % (Auto) 29.3 [place] % (Auto) 12.9 Eos % (Auto) 2.1 Baso % (Auto) 0.3 Neut # (Auto) 5.15 Lymph # (Auto) 2.73 [place] # (Auto) 1.20 H Eos # (Auto) 0.20 Baso # (Auto) 0.03 Immature Gran # (Auto) 0.02 PT INR APTT PTT Ratio Sodium 141 Potassium 3.9 4.1 Chloride 111 H Carbon Dioxide 29 Anion Gap 1.0 L BUN 16 Creatinine 0.92 Est Cr Clr Drug Dosing 65.2 Est GFR ( Amer) 99.4 Est GFR (Non-Af Amer) 85.8 BUN/Creatinine Ratio 17.6 Glucose 111 H Calcium 8.4 L Magnesium 2.5 H Total Bilirubin AST 25 ALT Alkaline Phosphatase Troponin I < 0.015 Total Protein Total Protein (PEP) Albumin Albumin (PEP) Globulin Albumin/Globulin Ratio Aacxb-5-Yfnrioipb Cpxcq-2-Jrcfrluwg Biie-7-Hjfneblh Xlyl-7-Xzjggnad Gamma Globulins Monoclonal Peak 3 Ser Monoclonl Protein Ser Monoclonal Prot 2 PEP Interpretation Lipase COVID-19 Eval Order SARS-CoV-2 (PCR) Influenza Type A (PCR) Influenza Type B (PCR) RSV (RT-PCR) 08/08/20 08/08/20 07:07 07:07 WBC RBC Hgb Hct MCV MCH MCHC RDW Std Deviation RDW Coeff of Areli Plt Count MPV Immature Gran % (Auto) Neut % (Auto) Lymph % (Auto) [place] % (Auto) Eos % (Auto) Baso % (Auto) Neut # (Auto) Lymph # (Auto) [place] # (Auto) Eos # (Auto) Baso # (Auto) Immature Gran # (Auto) PT INR APTT PTT Ratio Sodium Potassium Chloride Carbon Dioxide Anion Gap BUN Creatinine Est Cr Clr Drug Dosing Est GFR ( Amer) Est GFR (Non-Af Amer) BUN/Creatinine Ratio Glucose Calcium Magnesium Total Bilirubin AST ALT Alkaline Phosphatase Troponin I < 0.015 Total Protein Total Protein (PEP) Pending Albumin Albumin (PEP) Pending Globulin Albumin/Globulin Ratio Sager-9-Hvkogiwyg Pending Qxehn-5-Svmpcjqmd Pending Rbhj-3-Brszgivj Pending Jhjk-6-Hunxnoji Pending Gamma Globulins Pending Monoclonal Peak 3 Pending Ser Monoclonl Protein Pending Ser Monoclonal Prot 2 Pending PEP Interpretation Pending Lipase COVID-19 Eval Order SARS-CoV-2 (PCR) Influenza Type A (PCR) Influenza Type B (PCR) RSV (RT-PCR) Diagnostic Findings EKG rhythm is a sinus rhythm and is within normal limits. Patient has no significant arrhythmias on telemetry. Medications Administered Current Inpatient Medications Acetaminophen (Acetaminophen 325 Mg Tab) 650 mg PO Q4H PRN PRN Reason: Pain or Fever Stop: 09/07/20 02:31 Albuterol (Albuterol Hfa 8 Gm Inhaler) 2 puffs INH QID PRN PRN Reason: Shortness Of Breath Or Wheezing Stop: 09/07/20 02:31 Albuterol (Albut/Ipratrop 3mg/0.5mg Neb 3 Ml Vial) 3 ml NEB QIDR PRN PRN Reason: Shortness Of Breath Or Wheezing Stop: 09/07/20 02:31 Aspirin (Aspirin 81 Mg Ectab) 81 mg PO HS [facility] Stop: 09/07/20 20:59 Atorvastatin Calcium (Atorvastatin 40 Mg Tab) 80 mg PO [facility] Stop: 09/07/20 20:59 Clopidogrel Bisulfate (Clopidogrel Bisulfate 75 Mg Tab) 75 mg PO HS [facility] Stop: 09/07/20 20:59 Ezetimibe (Ezetimibe 10 Mg Tablet) 10 mg PO [facility] Stop: 09/07/20 20:59 Fluticasone Propionate (Fluticasone Propionate Na Spr 16 Gm Btl) 2 sprays NA DAILY [facility] Stop: 09/07/20 08:59 Last Admin: 08/08/20 08:08 Dose: 2 sprays Documented by: Lisinopril (Lisinopril 10 Mg Tab) 10 mg PO HS [facility] Stop: 09/07/20 20:59 Metoprolol Succinate (Metoprolol Succ 25mg Ext Rel Tab) 75 mg PO [facility] Stop: 09/07/20 20:59 Nitroglycerin (Nitroglycerin Sl 0.4 Mg/Tab Tab) 0.4 mg SL UD PRN PRN Reason: Chest Pain Stop: 09/07/20 02:31 Ondansetron HCl (Ondansetron Inj 2 Mg/Ml 2 Ml Vial) 4 mg IV Q6H PRN PRN Reason: Nausea Stop: 09/07/20 02:31
--- NOTE | 2020-08-08 10:48 | Electrocardiogram Report ---
Test Reason : Blood Pressure : / mmHG Vent. Rate : 069 BPM Atrial Rate : 069 BPM P-R Int : 136 ms QRS Dur : 088 ms QT Int : 380 ms P-R-T Axes : 065 015 085 degrees QTc Int : 407 ms Normal sinus rhythm Possible Left atrial enlargement Anterolateral infarct , age undetermined Abnormal ECG No previous ECGs available Confirmed by Natanael Ventura ([id number]) on 08/08/2020 10:48:11 AM Referred By: REFERRED SELF Confirmed By:Tremayne Ventura
--- NOTE | 2020-08-08 12:00 | Discharge Summary ---
Date of Service August 08, 2020 Admission HPI Per Admitting Provider 69-year-old male with past medical history significant for CAD status post stent, history of SVT, VT status post ICD, ischemic cardiomyopathy, chronic systolic congestive heart failure, hypertension, COPD, hyperlipidemia, sensorineural hearing loss of both ears, who presents with epigastric pain. The patient woke up in the morning with epigastric discomfort, 7/10 to 8/10 in severity, gas-like feeling, feeling uncomfortable, nausea. He had similar kind of symptoms when he had a heart attack. Seemed to be improved and he went to sleep and when he woke up it came back in the evening, so he came back to the hospital. Initial workup was unremarkable. After nitro, aspirin, morphine, and Maalox, pain resolved. Currently resting comfortably and hemodynamically stable. Currently, no pain, no shortness of breath, no headache, no blurred visions, no earache, no runny nose, no sore throat. Has chronic cough from his sinuses. No abdominal pain currently. No diarrhea, no constipation, no blood in the stools or black stools. Normal bladder movements. No swelling in the legs. Otherwise, ambulates okay at home. Admission Exam Per Admitting Provider GENERAL: The patient is of moderate build, not in acute distress. VITAL SIGNS: Temperature 36.9, pulse 60, respiratory rate 16, blood pressure 111/63, oxygen 97% on room air. HEENT: No pallor, no icterus. Atraumatic. NECK: No JVD, no neck masses. CARDIOVASCULAR: S1, S2 heard, regular rate and rhythm, no murmur, no gallop. RESPIRATORY SYSTEM: Normal AP diameter. No accessory muscle use. No wheezing, no crackles. ABDOMEN: Soft, bowel sounds present, nontender. No distention. CENTRAL NERVOUS SYSTEM: Cranial nerves II-XII grossly intact, nonfocal. EXTREMITIES: No edema, no erythema. Principal Diagnosis (1) Chest pain: (2) Epigastric abdominal pain: (3) Abnormal EKG: (4) Polycythemia: (5) Tobacco use: (6) Presence of cardiac defibrillator: (7) Pacemaker: Discharge Exam see below Discharge Data Allergies Allergy/AdvReac Type Severity Reaction Status Date / Time No Known Allergies Allergy Unverified 08/07/20 22:29 Consultations 08/07/20 23:02 ED Decision to Admit Stat 08/08/20 08:00 Consult Cardiology Routine Hospital Course (1) Chest pain: (2) Epigastric abdominal pain: (3) Abnormal EKG: (4) Polycythemia: (5) Tobacco use: (6) Presence of cardiac defibrillator: (7) Pacemaker: Cardiac clearance done, DC home and f/u c pcp ROS-No Headache, No Visual Changes, No Nausea, No Vomiting, No Fever, No Chills, No Neck Pain or Stiffness, + Chest Pain, No Palpitations, No SOB, No FORRESTER, No Cough, No Sputum, No Wheezing, +Epigastric Abdominal Pain, No Diarrhea, No Hematemesis, No Hemoptysis, No Unexpected Weight Loss, No Flank pain, No Melena, No Hematochezia, No Frequency, No Urgency, No Burning, No Hematuria, No Rashes, No Diaphoresis. Appetite is Normal Physical Exam Gen-AAO x 3, NAD, Afebrile Head-NCAT, EOMI, PERRLA, Anicteric Sclera, No Posterior Pharyngeal Erythema Neck-Supple, No JVD, No Thyromegaly, No Masses, No LAD, No Bruits Lungs-Clear to Auscultation Bilaterally, No Rales, No Rhonchi, No Wheezing, No Crepitus Chest-No S4, +S1, +S2, No S3, No Murmurs, No Rubs, No Gallops, No Ectopy Abdomen-Soft, Bowel Sounds Present, Non Tender, Non Distended, No Hepatomegaly, No Splenomegaly, No Palpable Masses, No Rebound, No Rigidity, No Guarding Musculoskeletal-Full Range of Motion Bilaterally, No CVAT Extremities-No Cyanosis, No Clubbing, No Edema Nuero-Cranial Nerves II-XII grossly intact, Motor WNL, DTRs WNL, Strength WNL, Non Focal Psych-Normal Mood Total Time Total Time Spent Total Time Spent (In Minutes): 45 mins Total Time Includes: Examination of the Patient, Discharge Planning, Medication Reconciliation and Communication With Other Providers Discharge Plan Discharge Items Patient Disposition: Home - Self-Care Reason For Visit: EPIGASTRIC PAIN Discharge Diagnosis: (1) Chest pain: (2) Epigastric abdominal pain: (3) Abnormal EKG: (4) Polycythemia: (5) Tobacco use: (6) Presence of cardiac defibrillator: (7) Pacemaker: Condition on Discharge: Good Activity: Resume your previous activity Lifting: Gradually increase as tolerated Bathing: No limitations Sexual Activity: When tolerated Exercise/Sports: Gradually increase as tolerated Driving/Machine Use: No limitations Weightbearing: Full weightbearing Non-emergency contact: Primary Care Provider Call non-emergency contact if: you have any medication questions Follow-up/Referrals: Roberta Watson DO [Primary Care Provider] - Diet: Heart Healthy Addtl Attending Provider Instructions: Restart Aspirin in 10 days Pending Studies at Discharge: No Stand-Alone Forms: My [facility] [place], Smoking Cessation Medications and DC Order Prescriptions: New omeprazole 20 mg capsule,delayed release(DR/EC) 20 mg PO BID 10 Days Qty: 20 RF: 0 Continued atorvastatin 80 mg tablet 80 mg PO DAILY RF: 0 metoprolol succinate 50 mg tablet extended release 24 hr 75 mg PO DAILY RF: 0 clopidogrel 75 mg tablet 75 mg PO DAILY RF: 0 lisinopril 10 mg tablet 10 mg PO DAILY RF: 0 nitroglycerin [Nitrostat] 0.4 mg Tablet, Sublingual 0.4 mg sublingual UD PRN (Reason: Chest Pain) RF: 0 albuterol sulfate 90 mcg/actuation Hfa Aerosol Inhaler 2 inh INHALATION QID PRN (Reason: Shortness Of Breath Or Wheezing) RF: 0 fluticasone propionate [Flonase Allergy Relief] 50 mcg/actuation [place],Suspension 2 spray INTRANASAL DAILY RF: 0 ezetimibe 10 mg tablet 10 mg PO DAILY RF: 0 Discontinued aspirin [Aspir-81] 81 mg Tablet,Delayed Release (Dr/Ec) 81 mg PO DAILY RF: 0 Discharge Orders: Discharge Order (Routine); Ordered 08/08/20 Ordered By: Franklyn Graf Admission Data Admit Date/Time: 08/08/20 00:11 Attending Provider: Franklyn Graf Admit Provider: Amrit Silverio Primary Care Provider: Roberta Watson Other Providers: Amrit Silverio ; Mason Alexis ; Clif Zhang ; Solo Goel ; Hernán Watson ; Mehul Giron ; Desmond Pendleton ; Jessica Espitia ; Zoraida Ruff ; Toño Sharpe
[2020-08-12 08:27] LABS: Albumin 3.3 g/dL (3.8-4.8); Alpha 1 Globulin 0.3 g/dL (0.2-0.3); Alpha 2 Globulin 0.8 g/dL (0.5-0.9); Beta-1-Globulin 0.4 g/dL (0.4-0.6); Beta-2-Globulin 0.4 g/dL (0.2-0.5); Gamma Globulin 0.8 g/dL (0.8-1.7); Monoclonal Protein Band 1 DNR g/dL (NONE DETECTED); Monoclonal Protein Band 2 DNR g/dL (NONE DETECTED); Monoclonal Protein Band 3 DNR g/dL (NONE DETECTED); Total Protein 5.9 g/dL (6.1-8.1)
== END 2020-08-08 13:31 | disposition home or self-care (01) ==
LOC: 2N 21:05 → ED 21:05 → 2N 08-08 02:21